=== PATIENT | female | born 1995 | race Two or more races ===

== ENCOUNTER 2016-09-11 20:35 | Emergency (ER) | payer OTHER ==
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
== END 2016-09-11 21:10 | disposition home or self-care (01) ==
LOC: ER 20:35
DX: R51 Headache (principal); F17.210 Nicotine dependence, cigarettes, uncomplicated